=== PATIENT | female | born 1990 | race Caucasian/White ===

== ENCOUNTER 2023-11-20 19:31 | Inpatient (IN) | payer BC, SELFPAY ==
[2023-11-20 19:42] VITALS: BP 121/78; BMI 35.9
[2023-11-20] MEDS: CYTOTEC 50 MICROGRAM VAG (20:36)
[2023-11-20 21:01] LABS: % Basophils 0.2 % (0-2); % Eosinophils 0.2 % (0-6); % Immature Granulocytes 0.7 % (0-0.5); % Lymphocytes 14.9 % (20.5-51.1); % Monocytes 7.2 % (1.7-9.3); % Neutrophils 76.8 % (42.2-75.2); Absolute Immature Granulocytes 0.1 10^3/uL (0-0.05); Absolute Lymphocytes 1.5 10^3/uL (1.2-3.4); Absolute Monocytes 0.7 10^3/uL (0.1-0.6); Absolute Neutrophils 7.6 10^3/uL (1.4-6.5); Hematocrit 36.7 % (37.0-47.0); Hemoglobin 12.5 g/dL (12.0-16.0); Mean Corp Hgb Conc. 34.1 g/dL (33.0-37.0); Mean Corpuscular Hgb 31.4 pg (27.0-31.0); Mean Corpuscular Volume 92.2 fL (81.0-99.0); Mean Platelet Volume 10.7 fL (7.4-10.4); Nucleated Red Blood Cells % 0 %; Platelet Count 197 10^3/uL (130-400); Red Blood Cell Count 3.98 10^6/uL (4.20-5.40); Red Cell Dist. Width 14.3 % (11.5-14.5); White Blood Cell Count 9.9 10^3/uL (4.8-10.8)
[2023-11-20] MEDS: LR 1000 IV (23:22)
[2023-11-20] MEDS: PENICILLIN 110 UNITS IV (23:56)
[2023-11-21] MEDS: FENTANYL/BUPIVACAINE 100 EPIDURAL (00:35)
[2023-11-21] MEDS: SUBLIMAZE 100 MCG EPIDURAL (00:35)
[2023-11-21] MEDS: LR 1000 IV (01:25)
[2023-11-21] MEDS: PENICILLIN 55 UNITS IV (04:06)
[2023-11-21] MEDS: PITOCIN 30 UNITS/NSS 500 ML IV (05:17)
[2023-11-21] MEDS: PRENATAL PLUS PO (09:45)
[2023-11-21] MEDS: TUMS 2 TABLET PO ×2 (13:10→21:08)
[2023-11-21] MEDS: TYLENOL 650 MG PO (15:56)
[2023-11-21] MEDS: MOTRIN 600 MG PO (21:07)
--- NOTE | 2023-11-22 03:08 | DOWNTIME ---
There was a [employer] Downtime on 11/22/2023 from 0100 to 11/22/2023 at 0252. Downtime documentation of patient's care, including medication administrations, has been reconciled in the electronic record per guidelines. Refer to the
patient's paper chart under the miscellaneous tab to see printed paper medication records and downtime forms.
[2023-11-22 03:56] LABS: Hematocrit 32.8 % (37.0-47.0); Hemoglobin 11.1 g/dL (12.0-16.0)
[2023-11-22] MEDS: TYLENOL 650 MG PO ×3 (08:19→20:50)
[2023-11-22] MEDS: SENOKOT-S 1 TABLET PO (11:21)
[2023-11-22] MEDS: PRENATAL PLUS 1 TABLET PO (11:34)
[2023-11-23] MEDS: MOTRIN 600 MG PO (01:50)
[2023-11-23] MEDS: PRENATAL PLUS 1 TABLET PO (08:57)
[2023-11-23] MEDS: TYLENOL 650 MG PO (08:57)
[2023-11-24 11:12] LABS: Syphilis/T. pallidum Ab Reflex Negative (Negative)
== END 2023-11-23 12:04 | disposition home or self-care (01) | DRG 807 ==
LOC: LDRP 19:31
PROVIDERS: ADMITTING PHYSICIAN Obstetrics & Gynecology; FAMILY PHYSICIAN Internal Medicine
PROC: 10E0XZZ Delivery of Products of Conception, External Approach (ICD-10-PCS; 2023-11-21)
PROC: 0HQ9XZZ Repair Perineum Skin, External Approach (ICD-10-PCS; 2023-11-21)
DX: O99.824 Streptococcus B carrier state complicating childbirth (principal); Z37.0 Single live birth; Z3A.40 40 weeks gestation of pregnancy; O70.0 First degree perineal laceration during delivery; O87.2 Hemorrhoids in the puerperium
CPT/HCPCS: 36415; 85014; 85018; 85025; 86780; 86850; 86900; 86901